=== PATIENT | female | born 1990 ===

== ENCOUNTER 2023-04-23 11:54 | Day surgery (SDC) | payer OTHER | END 2023-04-23 18:20 | disposition home or self-care (01) | LOC: CIR.AMB 11:54 | PROVIDERS: ATTEND Obstetrics & Gynecology Maternal & Fetal Medicine | DX: O02.1 Missed abortion (principal); O72.2 Delayed and secondary postpartum hemorrhage; Z20.822 Contact with and (suspected) exposure to COVID-19 ==